=== PATIENT | female | born 1995 | race Caucasian/White ===

== ENCOUNTER 2016-10-29 19:44 | Emergency (ER) | payer OTHER ==
[2016-10-29 20:57] VITALS: BP 125/87
--- NOTE | 2016-11-08 04:53 | ER ---
DATE SEEN: 10/29/2016 TIME SEEN: The patient was seen at 2020 hours. HISTORY OF PRESENT ILLNESS: This 21-year-old , approximately 8-1/2 weeks' gestation by ultrasound 10/26/2016, had onset of cramping at 1800 hours today and small amount of spotting yesterday. She denies fever, chills, or sore throat. She is 2, para 1-0-0-1. Last menstrual period 07/20/2016. The patient is alert, slightly anxious. REVIEW OF SYSTEMS: Otherwise negative. MEDICATIONS: vitamins noted. PHYSICAL EXAMINATION: VITAL SIGNS: Blood pressure 136/84, heart rate 106, respirations 20, oxygen saturation 98%, temperature 37.1 degrees centigrade. GENERAL: Alert women in mild distress. HEENT: PERRLA intact. Pharynx without abnormality. NECK: Supple. No cervical adenopathy, thyromegaly, or masses in neck. LUNGS: Clear to auscultation. ABDOMEN: Soft. No guarding. No abdominal discomfort. Gravid uterus noted, palpable. Palpation of the abdomen, gravid uterus palpable. Upper fundus nontender. PELVIC: Not performed. History is significant for left ganglion cyst removal. Fractured left wrist. With minimal amount of spotting, patient reassured. Quantitative HCG was canceled. ASSESSMENT: 1st trimester bleed. Vaginal bleeding, approximately 9 weeks' gestation. I have reassured the patient. Follow up with doctor in 2 to 4 days or earlier for increased bleeding. To forego intercourse until stabilized and reassured by her doctor that it can be resumed. Bedrest and gradually increase activity as tolerated. /[id number] ANYI/FABBY BOONE
== END 2016-10-29 20:50 | disposition home or self-care (01) ==
LOC: FB.ED 19:44
DX: O20.9 Hemorrhage in early pregnancy, unspecified (principal); Z3A.09 9 weeks gestation of pregnancy
CPT/HCPCS: 81001; 99284

== ENCOUNTER 2017-05-20 06:46 | Inpatient (IN) | payer OTHER ==
[2017-05-20] MEDS ORDERED: Sodium Chloride 0.9% 10 ML Syringe FLUSH PRN (07:45)
[2017-05-20] MEDS ORDERED: Oxytocin/Normal Saline 10 UNIT/1,000 ML BAG IV SCH (07:45)
--- NOTE | 2017-05-20 07:55 | PCM.SN ---
- Free Text/Narrative Note: This is a 22-year-old with EDC of 06/03/17 was 38 weeks. She has pain seemed his hypertension so she'll be induced today. She has a little bit headache last night the Tylenol to care. She'll otherwise asymptomatic and no foggy brain. The nurses report no clonus. Objective- pressure is 150/110 sitting up. Abdomen is gravid- Cervix is posterior and not able to reach today Group B negative- Assessment- induced hypertension, group B negative, 38 weeks Plan-induction and delivery.
[2017-05-20] MEDS: Lactated Ringers 1,000 ML IV SCH ×2 (08:17→15:19)
[2017-05-20] MEDS ORDERED: Acetaminophen 325 MG Tab PO PRN (13:00)
[2017-05-20] MEDS ORDERED: Misoprostol 25 MCG (1/4 of 100 MCG) Tab VAG ONE (16:53)
--- NOTE | 2017-05-20 18:11 | PCM.SN ---
- Free Text/Narrative Note: Patient having contractions. Cervix is about 2 cm dilated and high. Plan is we will stop the Pitocin and I placed Cytotec 25 g in the posterior fornix. No restarted the patient in 4 hours. I let the patient also E right now.
[2017-05-20] MEDS ORDERED: diphenhydrAMINE 25 MG Cap PO ONE (22:19)
[2017-05-20] MEDS ORDERED: Oxytocin 10 Units/1 ML SDV IV SCH (22:30)
[2017-05-21] MEDS: Lactated Ringers 1,000 ML IV SCH ×2 (00:50→05:56)
[2017-05-21] MEDS ORDERED: Scopolamine 1.5 MG Transdermal Patch TOP ONE (01:45)
[2017-05-21] MEDS ORDERED: Scopolamine 1.5 MG Transdermal Patch ONE (01:49)
[2017-05-21] MEDS: Nalbuphine 10 MG/1 ML Vial IVPUSH PRN ×2 (02:31→03:43)
[2017-05-21] MEDS ORDERED: Oxytocin 10 Units/1 ML SDV IM ONE (07:20)
[2017-05-21] MEDS ORDERED: Acetaminophen/Codeine 300-30 MG Tab PO PRN (07:45)
--- NOTE | 2017-05-21 08:39 | PCM.DEL ---
L & D Note - General Info Date of Service: 05/21/17 - Delivery Note Labor: Augmented by Oxytocin Cervical Ripening Method: Misoprostil Delivery Outcome: Livebirth Infant Delivery Method: Spontaneous Vaginal Delivery-Single Presentation: Left Occiput Anterior (LUZ) Nuchal Cord: Reduced (1) Anesthesia Type: Other (see below) (Nubain) Local Anesthetic Volume: 2cc Amniotic Fluid Description: Clear Episiotomy Type: None Laceration: Perineal Suture type: Vicryl (One simple suture) Suture size: 4-0 Placenta: Intact, Spontaneous Cord: 3 Vessels Resuscitation Needed: Yes : Suctioned - General Info Date of Service: 05/21/17 Admission Dx/Problem (Free Text): This is a 22-year-old with -induced hypertension. 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 - Patient Data Vitals - Most Recent: Last Vital Signs Temp 97.8 F 05/21/17 03:46 Pulse 101 H 05/21/17 03:46 Resp 20 05/21/17 03:46 BP 141/93 H 05/21/17 03:46 Pulse Ox Weight - Most Recent: 270 lb I&O - Last 24 Hours: Intake & Output 05/20/17 05/21/17 05/21/17 22:59 06:59 14:59 Intake Total 1697 2839 Output Total 200 1050 Balance 1497 1789 Med Orders - Current: Current Medications Acetaminophen/Codeine Phosphate (Tylenol With Codeine No.3 300mg/30mg) 1 tab PO Q4H PRN PRN Reason: Pain (moderate 4-6) Ibuprofen (Motrin) 800 mg PO Q8H [facility] Multivit/Folic Acid/Iron (-U) 1 each PO DAILY [facility] Discontinued Medications Acetaminophen (Tylenol) 650 mg PO Q4H PRN PRN Reason: Headache Last Admin: 05/20/17 13:53 Dose: 650 mg Diphenhydramine HCl (Benadryl) 25 mg PO ONETIME ONE Stop: 05/20/17 22:20 Last Admin: 05/20/17 22:42 Dose: 25 mg Lactated Ringer's (Ringers, Lactated) 1,000 mls @ 125 mls/hr IV ASDIRECTED [facility] Last Admin: 05/21/17 05:56 Dose: 125 mls/hr Oxytocin/Sodium Chloride (Pitocin In Ns 10 Units/1,000 Ml) 10 unit in 1,000 mls @ 12 mls/hr IV TITRATE [facility]; 2 MUNITS/MIN PRN Reason: Protocol Last Titration: 05/21/17 01:03 Dose: 0 munits/min, 0 mls/hr Misoprostol (Cytotec) 25 mcg VAG ONETIME ONE Stop: 05/20/17 16:54 Last Admin: 05/20/17 17:14 Dose: 25 mcg Nalbuphine HCl (Nubain) 10 mg IVPUSH Q2H PRN PRN Reason: PAIN Last Admin: 05/21/17 03:43 Dose: 10 mg Oxytocin (Pitocin) 10 unit IV TITRATE [facility] Scopolamine (Transderm-Scop) Confirm Administered Dose 1.5 mg .ROUTE .STK-MED ONE Stop: 05/21/17 01:50 Sodium Chloride (Saline Flush) 10 ml FLUSH ASDIRECTED PRN PRN Reason: Keep Vein Open Last Admin: 05/20/17 08:16 Dose: 10 ml - Problem List & Annotations (1) Vaginal delivery SNOMED Code(s): 155617701 Code(s): O80 - ENCOUNTER FOR FULL-TERM UNCOMPLICATED DELIVERY Status: Acute Current Visit: Yes - Problem List Review Problem List Initiated/Reviewed/Updated: Yes - My Orders Last 24 Hours: My Active Orders 05/20/17 07:45 Notify Provider [RC] PRN Notify Provider [RC] STAT Vaginal Exam [RC] PRN 05/21/17 07:45 Patient Status [ADT] Routine May Shower [RC] ASDIRECTED Up ad Karena [RC] ASDIRECTED Vital Signs [RC] PFP Acetaminophen/Codeine [Tylenol with Codeine No.3 300MG/30MG] 1 tab PO Q4H PRN Assess Lochia [WOMSER] Per Unit Routine Assess Uterine Involution [WOMSER] Per Unit Routine Breast Pump [WOMSER] Per Unit Routine Resuscitation Status Routine 05/21/17 07:46 Perineal Care [OM.PC] Per Unit Routine Peripheral IV Discontinue [OM.PC] Routine Sitz Bath [OM.PC] Per Unit Routine 05/21/17 08:00 Ibuprofen [Motrin] 800 mg PO Q8H 05/21/17 09:00 Vit/FA/Fe Fumarate [-U] 1 each PO DAILY 05/21/17 Breakfast Regular Diet [DIET] 05/22/17 05:11 HEMOGLOBIN/HEMATOCRIT,HH [HEME] AM - Plan Plan:: 1. EBL less than 500 and complications none. 2. Normal orders. See orders.
[2017-05-21] MEDS: Prenatal Multivitamin with Calcium/Folic Acid/Fe Fumarate Cap PO SCH (08:59)
[2017-05-21] MEDS: Ibuprofen 800 MG Tab PO SCH ×3 (08:59→23:45)
[2017-05-22] MEDS: Prenatal Multivitamin with Calcium/Folic Acid/Fe Fumarate Cap PO SCH (09:06)
[2017-05-22] MEDS: Ibuprofen 800 MG Tab PO SCH ×2 (09:06→15:44)
--- NOTE | 2017-05-22 09:33 | PCM.PNPP ---
- General Info Date of Service: 05/22/17 Admission Dx/Problem (Free Text): Patient without complaints. Last night she had a large clot Her bleeding slowed significantly. Pain is controlled with ibuprofen. She denies headaches, chest pain or shortness of breath. - General Info Date of Service: 05/22/17 - Patient Data Vital Signs - Most Recent: Last Vital Signs Temp 98.0 F 05/21/17 23:50 Pulse 90 05/21/17 23:50 Resp 18 05/21/17 23:50 BP 125/81 05/21/17 23:50 Pulse Ox 99 05/21/17 23:50 Weight - Most Recent: 270 lb I&O - Last 24 Hours: Intake & Output 05/21/17 05/22/17 05/22/17 22:59 06:59 14:59 Intake Total 1000 Output Total 50 Balance 950 Lab Results - Last 24 Hours: Laboratory Results - last 24 hr 05/22/17 Range/Units 06:30 Hgb 9.1 L (11.5-15.5) g/dL Hct 26.8 L (30.0-51.3) % Med Orders - Current: Current Medications Acetaminophen/Codeine Phosphate (Tylenol With Codeine No.3 300mg/30mg) 1 tab PO Q4H PRN PRN Reason: Pain (moderate 4-6) Ferrous Gluconate (Ferrous Gluconate) 324 mg PO DAILY [facility] Ibuprofen (Motrin) 800 mg PO Q8H [facility] Last Admin: 05/22/17 09:06 Dose: 800 mg Multivit/Folic Acid/Iron (-U) 1 each PO DAILY [facility] Last Admin: 05/22/17 09:06 Dose: 1 each Discontinued Medications Acetaminophen (Tylenol) 650 mg PO Q4H PRN PRN Reason: Headache Last Admin: 05/20/17 13:53 Dose: 650 mg Diphenhydramine HCl (Benadryl) 25 mg PO ONETIME ONE Stop: 05/20/17 22:20 Last Admin: 05/20/17 22:42 Dose: 25 mg Lactated Ringer's (Ringers, Lactated) 1,000 mls @ 125 mls/hr IV ASDIRECTED [facility] Last Admin: 05/21/17 05:56 Dose: 125 mls/hr Oxytocin/Sodium Chloride (Pitocin In Ns 10 Units/1,000 Ml) 10 unit in 1,000 mls @ 12 mls/hr IV TITRATE [facility]; 2 MUNITS/MIN PRN Reason: Protocol Last Titration: 05/21/17 01:03 Dose: 0 munits/min, 0 mls/hr Misoprostol (Cytotec) 25 mcg VAG ONETIME ONE Stop: 05/20/17 16:54 Last Admin: 05/20/17 17:14 Dose: 25 mcg Nalbuphine HCl (Nubain) 10 mg IVPUSH Q2H PRN PRN Reason: PAIN Last Admin: 05/21/17 03:43 Dose: 10 mg Oxytocin (Pitocin) 10 unit IV TITRATE [facility] Oxytocin (Pitocin) 10 unit IM ONETIME ONE Stop: 05/21/17 07:21 Last Admin: 05/21/17 07:23 Dose: 10 unit Scopolamine (Transderm-Scop) Confirm Administered Dose 1.5 mg .ROUTE .STK-MED ONE Stop: 05/21/17 01:50 Last Admin: 05/21/17 21:04 Dose: Not Given Scopolamine (Transderm-Scop) 1.5 mg TOP ONETIME ONE Stop: 05/21/17 01:46 Last Admin: 05/20/17 07:00 Dose: 1.5 mg Sodium Chloride (Saline Flush) 10 ml FLUSH ASDIRECTED PRN PRN Reason: Keep Vein Open Last Admin: 05/20/17 08:16 Dose: 10 ml - Interaction Support Person: Significant Other - Recovery Exam Fundal Tone: Firm Fundal Level: At Umbilicus Fundal Placement: Midline Lochia Amount: Moderate Lochia Color: Rubra/Red Perineum Description: Intact, Minimal Bruising/Swelling Episiotomy/Laceration: None Bladder Status: Voiding - Exam General: Alert, Oriented, Cooperative Lungs: Clear to Auscultation, Normal Respiratory Effort Cardiovascular: Regular Rate, Regular Rhythm, No Murmurs GI/Abdominal Exam: Other (Fundus is firm) Extremities: No Pedal Edema Psy/Mental Status: Alert, Normal Affect, Normal Mood - Problem List & Annotations (1) Vaginal delivery SNOMED Code(s): 789688967 Code(s): O80 - ENCOUNTER FOR FULL-TERM UNCOMPLICATED DELIVERY Status: Acute Current Visit: Yes (2) Anemia SNOMED Code(s): 284005427 Code(s): D64.9 - ANEMIA, UNSPECIFIED Status: Acute Current Visit: Yes Qualifiers: Anemia type: unspecified type Qualified Code(s): D64.9 - Anemia, unspecified - Problem List Review Problem List Initiated/Reviewed/Updated: Yes - My Orders Last 24 Hours: My Active Orders 05/21/17 09:00 Vit/FA/Fe Fumarate [-U] 1 each PO DAILY 05/22/17 09:30 Ferrous Gluconate 324 mg PO DAILY - Plan Plan:: 1. Start iron once a day.
[2017-05-22] MEDS: Ferrous Gluconate 324 MG Tab PO SCH (10:53)
[2017-05-23] MEDS: Ibuprofen 800 MG Tab PO SCH ×2 (00:15→08:42)
[2017-05-23] MEDS: Prenatal Multivitamin with Calcium/Folic Acid/Fe Fumarate Cap PO SCH (08:43)
[2017-05-23] MEDS: Ferrous Gluconate 324 MG Tab PO SCH (08:43)
[2017-05-23 11:08] VITALS: BP 132/78
--- NOTE | 2017-05-23 12:04 | PCM.PN ---
- General Info Date of Service: 05/23/17 Admission Dx/Problem (Free Text): Patient without complaints. Fundus firm vaginal bleeding minimal. - Patient Data Vitals - Most Recent: Last Vital Signs Temp 97.9 F 05/23/17 00:15 Pulse 84 05/23/17 08:05 Resp 18 05/23/17 08:05 BP 132/78 05/23/17 08:05 Pulse Ox 100 05/23/17 08:05 Weight - Most Recent: 270 lb Med Orders - Current: Current Medications Acetaminophen/Codeine Phosphate (Tylenol With Codeine No.3 300mg/30mg) 1 tab PO Q4H PRN PRN Reason: Pain (moderate 4-6) Ferrous Gluconate (Ferrous Gluconate) 324 mg PO DAILY [facility] Last Admin: 05/23/17 08:43 Dose: 324 mg Ibuprofen (Motrin) 800 mg PO Q8H [facility] Last Admin: 05/23/17 08:42 Dose: 800 mg Multivit/Folic Acid/Iron (-U) 1 each PO DAILY [facility] Last Admin: 05/23/17 08:43 Dose: 1 each Discontinued Medications Acetaminophen (Tylenol) 650 mg PO Q4H PRN PRN Reason: Headache Last Admin: 05/20/17 13:53 Dose: 650 mg Diphenhydramine HCl (Benadryl) 25 mg PO ONETIME ONE Stop: 05/20/17 22:20 Last Admin: 05/20/17 22:42 Dose: 25 mg Lactated Ringer's (Ringers, Lactated) 1,000 mls @ 125 mls/hr IV ASDIRECTED [facility] Last Admin: 05/21/17 05:56 Dose: 125 mls/hr Oxytocin/Sodium Chloride (Pitocin In Ns 10 Units/1,000 Ml) 10 unit in 1,000 mls @ 12 mls/hr IV TITRATE [facility]; 2 MUNITS/MIN PRN Reason: Protocol Last Titration: 05/21/17 01:03 Dose: 0 munits/min, 0 mls/hr Misoprostol (Cytotec) 25 mcg VAG ONETIME ONE Stop: 05/20/17 16:54 Last Admin: 05/20/17 17:14 Dose: 25 mcg Nalbuphine HCl (Nubain) 10 mg IVPUSH Q2H PRN PRN Reason: PAIN Last Admin: 05/21/17 03:43 Dose: 10 mg Oxytocin (Pitocin) 10 unit IV TITRATE [facility] Oxytocin (Pitocin) 10 unit IM ONETIME ONE Stop: 05/21/17 07:21 Last Admin: 05/21/17 07:23 Dose: 10 unit Scopolamine (Transderm-Scop) Confirm Administered Dose 1.5 mg .ROUTE .STK-MED ONE Stop: 05/21/17 01:50 Last Admin: 05/21/17 21:04 Dose: Not Given Scopolamine (Transderm-Scop) 1.5 mg TOP ONETIME ONE Stop: 05/21/17 01:46 Last Admin: 05/20/17 07:00 Dose: 1.5 mg Sodium Chloride (Saline Flush) 10 ml FLUSH ASDIRECTED PRN PRN Reason: Keep Vein Open Last Admin: 05/20/17 08:16 Dose: 10 ml - Exam General: Alert, Oriented, Cooperative Lungs: Normal Respiratory Effort GI/Abdominal Exam: Other (Fundus is firm) - Problem List & Annotations (1) Vaginal delivery SNOMED Code(s): 862502082 Code(s): O80 - ENCOUNTER FOR FULL-TERM UNCOMPLICATED DELIVERY Status: Acute Current Visit: Yes (2) Anemia SNOMED Code(s): 646455178 Code(s): D64.9 - ANEMIA, UNSPECIFIED Status: Acute Current Visit: Yes Qualifiers: Anemia type: unspecified type Qualified Code(s): D64.9 - Anemia, unspecified - Problem List Review Problem List Initiated/Reviewed/Updated: Yes - Plan Plan:: 1. Discharge to home on vitamin and iron
--- NOTE | 2017-05-23 12:08 | PCM.DCSUM1 ---
Discharge Summary - Hospital Course Free Text/Narrative:: Hospital course-patient did well and her blood pressure came down nicely. Hemoglobin was below 10 and about 9 day 2 and iron was started. She states she had a large clot after her delivery and after that her bleeding slowed. Her pain was controlled with ibuprofen. She'll be discharged home. Brief History: This is a 22-year-old 38 weeks with a due date of . Was induced because of pain seems hypertension. She is group B negative. Delivered a healthy female weight of 5 lbs. 5 oz. - Discharge Data Discharge Date: 05/23/17 Discharge Disposition: Home, Self-Care 01 Condition: Good - Discharge Diagnosis/Problem(s) (1) Vaginal delivery SNOMED Code(s): 709090204 ICD Code: O80 - ENCOUNTER FOR FULL-TERM UNCOMPLICATED DELIVERY Status: Acute Current Visit: Yes (2) Anemia SNOMED Code(s): 895973169 ICD Code: D64.9 - ANEMIA, UNSPECIFIED Status: Acute Current Visit: Yes Qualifiers: Anemia type: unspecified type Qualified Code(s): D64.9 - Anemia, unspecified (3) induced hypertension SNOMED Code(s): 88953017 ICD Code: O13.9 - GESTATIONAL HTN W/O SIGNIFICANT PROTEINURIA, UNSP TRIMESTER Status: Acute Current Visit: Yes Qualifiers: Trimester: third trimester Qualified Code(s): O13.3 - Gestational [ -induced] hypertension without significant proteinuria, third trimester - Patient Instructions Diet: Regular Diet as Tolerated Activity: As Tolerated Driving: May Drive Today Showering/Bathing: May Shower Notify Provider of: Fever, Increased Pain, Drainage, Nausea and/or Vomiting Other/Special Instructions: 1. Recheck in 6 weeks for check. 2. For pain [id number] ibuprofen. - Discharge Plan Prescriptions/Med Rec: Ferrous Gluconate 324 mg PO DAILY #30 tablet Home Medications: Home Meds Vit No.129/Iron/FA [ One Daily Tablet] 1 each PO DAILY [History] Ferrous Gluconate 324 mg PO DAILY #30 tablet 05/23/17 [Rx] Patient Handouts: Child Safety Seats, Shaken Baby Syndrome, , and Inducing , Infant Formula Feeding, Rashes, Taking Your Child's Temperature, Rooming-In With Your , Keeping Your [place] Safe and Healthy, [id number], Well Charge Operator - [place], Mastitis, [id number], Breast Tenderness, Breast Pumping Tips, Vaginal Delivery, Depression and Baby Blues, How to Take a Sitz Bath, Baby Safe Sleeping Information, How To Prepare Formula, [place] Baby Care, Home Care Instructions for Mom, Vaginal Delivery, Care After, Breast Engorgement, Breast Pumping Tips, [id number], Baby Safe Sleeping Information, [id number] , Challenges and Solutions, Care After Vaginal Delivery , Keeping Your [place] Safe and Healthy, Eating Plan for Women, Bilirubin Test, With Inverted, Flat, or Very Large Nipples, Jaundice, [place], Vhlf-ch-Einu - Discharge Summary/Plan Comment DC Time >30 min.: No - Patient Data Vitals - Most Recent: Last Vital Signs Temp 97.9 F 05/23/17 00:15 Pulse 84 05/23/17 08:05 Resp 18 05/23/17 08:05 BP 132/78 05/23/17 08:05 Pulse Ox 100 05/23/17 08:05 Weight - Most Recent: 270 lb Med Orders - Current: Current Medications Acetaminophen/Codeine Phosphate (Tylenol With Codeine No.3 300mg/30mg) 1 tab PO Q4H PRN PRN Reason: Pain (moderate 4-6) Ferrous Gluconate (Ferrous Gluconate) 324 mg PO DAILY [facility] Last Admin: 05/23/17 08:43 Dose: 324 mg Ibuprofen (Motrin) 800 mg PO Q8H [facility] Last Admin: 05/23/17 08:42 Dose: 800 mg Multivit/Folic Acid/Iron (-U) 1 each PO DAILY [facility] Last Admin: 05/23/17 08:43 Dose: 1 each Discontinued Medications Acetaminophen (Tylenol) 650 mg PO Q4H PRN PRN Reason: Headache Last Admin: 05/20/17 13:53 Dose: 650 mg Diphenhydramine HCl (Benadryl) 25 mg PO ONETIME ONE Stop: 05/20/17 22:20 Last Admin: 05/20/17 22:42 Dose: 25 mg Lactated Ringer's (Ringers, Lactated) 1,000 mls @ 125 mls/hr IV ASDIRECTED [facility] Last Admin: 05/21/17 05:56 Dose: 125 mls/hr Oxytocin/Sodium Chloride (Pitocin In Ns 10 Units/1,000 Ml) 10 unit in 1,000 mls @ 12 mls/hr IV TITRATE [facility]; 2 MUNITS/MIN PRN Reason: Protocol Last Titration: 05/21/17 01:03 Dose: 0 munits/min, 0 mls/hr Misoprostol (Cytotec) 25 mcg VAG ONETIME ONE Stop: 05/20/17 16:54 Last Admin: 05/20/17 17:14 Dose: 25 mcg Nalbuphine HCl (Nubain) 10 mg IVPUSH Q2H PRN PRN Reason: PAIN Last Admin: 05/21/17 03:43 Dose: 10 mg Oxytocin (Pitocin) 10 unit IV TITRATE [facility] Oxytocin (Pitocin) 10 unit IM ONETIME ONE Stop: 05/21/17 07:21 Last Admin: 05/21/17 07:23 Dose: 10 unit Scopolamine (Transderm-Scop) Confirm Administered Dose 1.5 mg .ROUTE .STK-MED ONE Stop: 05/21/17 01:50 Last Admin: 05/21/17 21:04 Dose: Not Given Scopolamine (Transderm-Scop) 1.5 mg TOP ONETIME ONE Stop: 05/21/17 01:46 Last Admin: 05/20/17 07:00 Dose: 1.5 mg Sodium Chloride (Saline Flush) 10 ml FLUSH ASDIRECTED PRN PRN Reason: Keep Vein Open Last Admin: 05/20/17 08:16 Dose: 10 ml *Q Meaningful Use (DIS) - VTE *Q VTE Criteria *Q: - Stroke *Q Stroke Criteria *Q: - AMI *Q AMI Criteria *Q:
== END 2017-05-23 13:26 | disposition home or self-care (01) | DRG 775 ==
LOC: FB.OBCHECK 06:46 → FB.OB 06:49 → UNDOADMOB 07:00 → FB.OBCHECK 07:00 → FB.OB 07:00 → OBSVTOIN 23:50 → INTOOBSV 23:50 → OBSVTOIN 05-21 07:10 → FB.OB 05-21 07:10 → UNDODISIN 05-23 13:26
PROVIDERS: ADMIT Family Medicine; ATTEND Family Medicine
PROC: 3E0P7GC Introduction of Other Therapeutic Substance into Female Reproductive, Via Natural or Artificial Opening (ICD-10-PCS; 2017-05-20)
PROC: 3E033VJ Introduction of Other Hormone into Peripheral Vein, Percutaneous Approach (ICD-10-PCS; 2017-05-20)
PROC: 10E0XZZ Delivery of Products of Conception, External Approach (ICD-10-PCS; principal; 2017-05-21)
PROC: 00HU33Z Insertion of Infusion Device into Spinal Canal, Percutaneous Approach (ICD-10-PCS; 2017-05-21)
DX: O13.4 Gestational [pregnancy-induced] hypertension without significant proteinuria, complicating childbirth (principal); O69.81X0 Labor and delivery complicated by cord around neck, without compression, not applicable or unspecified; O70.0 First degree perineal laceration during delivery; Z3A.38 38 weeks gestation of pregnancy; Z37.0 Single live birth; O90.81 Anemia of the puerperium
CPT/HCPCS: 36415; 59409; 85014; 85018; A9270-GY; J2300; J2590; J7050; J7120

== ENCOUNTER 2017-10-14 19:27 | Emergency (ER) | payer OTHER ==
[2017-10-14] MEDS ORDERED: Ondansetron 8 MG Tab.DIS PO ONE (19:35)
[2017-10-14] MEDS ORDERED: Sodium Chloride 0.9% 1,000 ML IV ONE (20:57)
[2017-10-14] MEDS ORDERED: Acetaminophen 325 MG Tab PO ONE (21:00)
--- NOTE | 2017-10-14 23:00 | EDM.PDOC ---
ED HPI GENERAL MEDICAL PROBLEM - General Chief Complaint: Gastrointestinal Problem Stated Complaint: SICK Time Seen by Provider: 10/14/17 19:27 Source of Information: Reports: Patient, Family History Limitations: Reports: No Limitations - History of Present Illness INITIAL COMMENTS - FREE TEXT/NARRATIVE: 22 y.o.w.f came with her family to the ed due to N/V for 1 day and epigastric pain. Pt is breast feeding a 5 months old baby. 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 No trauma. Pt had poor po intake in the past few days, could be . No other acute medical issues. BP 104/68 Pulse 112 RR 18 Pulse ox 100% Temp 36.7 Onset Date: 10/13/17 Onset Time: 09:00 Duration: Hour(s): Location: Reports: Abdomen Quality: Reports: Ache, Burning, Dull, Pressure, Same as Previous Episode Severity: Moderate Improves with: Reports: Rest Worsens with: Reports: Movement Context: Reports: Sick Contact Associated Symptoms: Reports: No Other Symptoms upper abdomen Pain Score (Numeric/FACES): 2 - Related Data Allergies Allergy/AdvReac Type Severity Reaction Status Date / Time No Known Allergies Allergy Verified 10/14/17 21:00 Home Meds: Home Meds Ondansetron [Zofran ODT] 4 mg PO Q6H PRN #20 tab.dis 10/14/17 [Rx] Pantoprazole Sodium [Protonix] 20 mg PO DAILY #20 tablet.dr 10/14/17 [Rx] Past Medical History HEENT History: Reports: Other (See Below) Other HEENT History: NASAL CONGESTION Gastrointestinal History: Reports: Other (See Below) Other Gastrointestinal History: gullbladder issues 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: Musculoskeletal History: Reports: Other (See Below) Other Musculoskeletal History: wrist surgery Neurological History: Reports: Migraines Psychiatric History: Reports: Depression Hematologic History: Reports: Other (See Below) Other Hematologic History: HGB SL LOW AT LAST VISIT - Past Surgical History HEENT Surgical History: Reports: Oral Surgery GI Surgical History: Reports: None Neurological Surgical History: Reports: None Musculoskeletal Surgical History: Reports: Ganglion Cyst Social & Family History - Family History Family Medical History: Noncontributory - Tobacco Use Smoking Status *Q: Never Smoker Second Hand Smoke Exposure: Yes - Caffeine Use Caffeine Use: Reports: None Other Caffeine Use: RARE SODA - Recreational Drug Use Recreational Drug Use: No - Living Situation & Occupation Living situation: Reports: Single ED ROS GENERAL - Review of Systems Review Of Systems: See Below Constitutional: Reports: No Symptoms HEENT: Reports: No Symptoms Respiratory: Reports: No Symptoms Cardiovascular: Reports: No Symptoms Endocrine: Reports: No Symptoms GI/Abdominal: Reports: Abdominal Pain (epigastric) : Reports: No Symptoms Musculoskeletal: Reports: No Symptoms Skin: Reports: No Symptoms Neurological: Reports: No Symptoms Psychiatric: Reports: No Symptoms Hematologic/Lymphatic: Reports: No Symptoms Immunologic: Reports: No Symptoms ED EXAM, GI/ABD - Physical Exam Exam: See Below Exam Limited By: No Limitations General Appearance: Alert, WD/WN, No Apparent Distress Eyes: Bilateral: Normal Appearance Ears: Normal External Exam, Normal Canal Nose: Normal Inspection, Normal Mucosa Throat/Mouth: Normal Inspection, Normal Lips Head: Atraumatic, Normocephalic Neck: Normal Inspection, Supple, Non-Tender Respiratory/Chest: No Respiratory Distress, Lungs Clear, Normal Breath Sounds, Chest Non-Tender Cardiovascular: Normal Peripheral Pulses, Regular Rate, Rhythm GI/Abdominal Exam: Normal Bowel Sounds, Soft, Tender (epigastric tenderness) (Female) Exam: Deferred Rectal (Female) Exam: Deferred Back Exam: Normal Inspection, Full Range of Motion Extremities: Normal Inspection, Normal Range of Motion, Non-Tender, No Pedal Edema, Normal Capillary Refill Neurological: Alert, Oriented, CN II-XII Intact, Normal Cognition, Normal Gait Psychiatric: Normal Affect, Normal Mood Skin Exam: Warm, Dry, Intact, Normal Color, No Rash Lymphatic: No Adenopathy Course - Vital Signs Text/Narrative:: 22 y.o.w.f came with her family to the ed due to N/V for 1 day and epigastric pain. Pt is breast feeding a 5 months old baby. 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 No trauma. Pt had poor po intake in the past few days, could be . No other acute medical issues. BP 104/68 Pulse 112 RR 18 Pulse ox 100% Temp 36.7 PE: Pale 22 r.o.w.f with nausea and epigastric pain Labs: WBC 21K BUN/Cr 23.4 UA neg bands: 2 Imaging: CXR: NAD Impression: Leukocytosis ( pos from vomiting) gastritis, dehydration Tx: NS, Zofran, Protronix Reexam: Improved, pt was able to keep food down on D/C Plan: D/C with instriction Last Recorded V/S: Last Vital Signs Temp 37.1 C 10/14/17 22:10 Pulse 96 10/14/17 22:10 Resp 18 10/14/17 22:10 BP 113/59 L 10/14/17 22:10 Pulse Ox 98 10/14/17 22:10 - Orders/Labs/Meds Orders: Active Orders 24 hr Category Date Time Status CULTURE BLOOD [BC] Urgent Lab 10/14/17 21:00 Received CULTURE BLOOD [BC] Urgent Lab 10/14/17 21:05 Received Blood Culture x2 Reflex Set [OM.PC] Urgent Oth 10/14/17 20:54 Ordered Labs: Laboratory Tests 10/14/17 10/14/17 10/14/17 Range/Units 19:45 19:45 19:45 WBC 21.4 H (4.5-12.0) X10-3/uL RBC 5.29 H (3.23-5.20) x10(6)uL Hgb 12.1 D (11.5-15.5) g/dL Hct 36.9 D (30.0-51.3) % MCV 69.6 L (80-96) fL MCH 22.8 L (27.7-33.6) pg MCHC 32.8 (32.2-35.4) g/dL RDW 18.0 H (11.5-15.5) % Plt Count 316 (125-369) X10(3)uL MPV 8.7 (7.4-10.4) fL Add Manual Diff Yes Neutrophils % (Manual) 87 H (46-82) % Band Neutrophils % 2 (0-6) % Lymphocytes % (Manual) 8 L (13-37) % Monocytes % (Manual) 3 L (4-12) % Hypochromasia Few Anisocytosis Few Microcytosis Moderate H Sodium 140 (135-145) mmol/L Potassium 3.9 (3.5-5.3) mmol/L Chloride 103 (100-110) mmol/L Carbon Dioxide 29 (21-32) mmol/L BUN 16 (7-18) mg/dL Creatinine 0.7 (0.55-1.02) mg/dL Est Cr Clr Drug Dosing TNP Estimated GFR (MDRD) > 60 (>60) BUN/Creatinine Ratio 22.9 H (9-20) Glucose 97 (80-116) mg/dL Lactic Acid (0.4-2.2) mmol/L Calcium 9.2 (8.6-10.2) mg/dL Total Bilirubin 0.2 (0.1-1.3) mg/dL Direct Bilirubin 0.05 L (0.10-0.20) mg/dL AST 17 (5-25) IU/L ALT 24 (12-36) U/L Alkaline Phosphatase 129 H (56-112) IU/L Total Protein 7.9 (6.0-8.0) g/dL Albumin 3.5 (3.5-5.2) g/dL Amylase 41 (25-115) U/L Urine Color (YELLOW) Urine Appearance (CLEAR) Urine pH (5.0-6.5) Ur Specific Sarver (1.010-1.025) Urine Protein (NEGATIVE) mg/dL Urine Glucose (UA) (NEGATIVE) mg/dL Urine Ketones (NEGATIVE) mg/dL Urine Occult Blood (NEGATIVE) Urine Nitrite (NEGATIVE) Urine Bilirubin (NEGATIVE) Urine Urobilinogen (NEGATIVE) mg/dL Ur Leukocyte Esterase (NEGATIVE) Urine RBC (0) Urine WBC (0) Ur Squamous Epith Cells (NS,R,O) Urine Bacteria (NS) Urine Mucus (NS) Urine HCG, Qual (NEGATIVE) 10/14/17 10/14/17 10/14/17 Range/Units 20:00 20:00 21:05 WBC (4.5-12.0) X10-3/uL RBC (3.23-5.20) x10(6)uL Hgb (11.5-15.5) g/dL Hct (30.0-51.3) % MCV (80-96) fL MCH (27.7-33.6) pg MCHC (32.2-35.4) g/dL RDW (11.5-15.5) % Plt Count (125-369) X10(3)uL MPV (7.4-10.4) fL Add Manual Diff Neutrophils % (Manual) (46-82) % Band Neutrophils % (0-6) % Lymphocytes % (Manual) (13-37) % Monocytes % (Manual) (4-12) % Hypochromasia Anisocytosis Microcytosis Sodium (135-145) mmol/L Potassium (3.5-5.3) mmol/L Chloride (100-110) mmol/L Carbon Dioxide (21-32) mmol/L BUN (7-18) mg/dL Creatinine (0.55-1.02) mg/dL Est Cr Clr Drug Dosing Estimated GFR (MDRD) (>60) BUN/Creatinine Ratio (9-20) Glucose (80-116) mg/dL Lactic Acid 0.6 (0.4-2.2) mmol/L Calcium (8.6-10.2) mg/dL Total Bilirubin (0.1-1.3) mg/dL Direct Bilirubin (0.10-0.20) mg/dL AST (5-25) IU/L ALT (12-36) U/L Alkaline Phosphatase (56-112) IU/L Total Protein (6.0-8.0) g/dL Albumin (3.5-5.2) g/dL Amylase (25-115) U/L Urine Color Yellow (YELLOW) Urine Appearance Clear (CLEAR) Urine pH 9.0 H (5.0-6.5) Ur Specific Sarver 1.015 (1.010-1.025) Urine Protein Negative (NEGATIVE) mg/dL Urine Glucose (UA) Normal (NEGATIVE) mg/dL Urine Ketones Negative (NEGATIVE) mg/dL Urine Occult Blood Negative (NEGATIVE) Urine Nitrite Negative (NEGATIVE) Urine Bilirubin Negative (NEGATIVE) Urine Urobilinogen Normal (NEGATIVE) mg/dL Ur Leukocyte Esterase Negative (NEGATIVE) Urine RBC 0-5 (0) Urine WBC 0-5 (0) Ur Squamous Epith Cells Few H (NS,R,O) Urine Bacteria Few H (NS) Urine Mucus Few H (NS) Urine HCG, Qual Negative (NEGATIVE) Meds: Medications Discontinued Medications Generic Name Dose Route Start Last Admin Trade Name Freq PRN Reason Stop Dose Admin Acetaminophen 650 mg 10/14/17 21:00 10/14/17 22:25 Tylenol PO 10/14/17 21:01 650 mg NOW ONE Administration Sodium Chloride 1,000 mls @ 999 mls/hr 10/14/17 20:57 10/14/17 21:10 Normal Saline IV 10/14/17 21:57 999 mls/hr .BOLUS ONE Administration Ondansetron HCl 8 mg 10/14/17 19:35 10/14/17 20:08 Zofran Odt PO 10/14/17 19:36 8 mg ONETIME ONE Administration Departure - Departure Time of Disposition: 22:55 Disposition: Home, Self-Care 01 Condition: Good Clinical Impression: Gastritis Qualifiers: Gastritis type: unspecified gastritis Chronicity: acute Gastritis bleeding: without bleeding Qualified Code(s): K29.00 - Acute gastritis without bleeding - Discharge Information Prescriptions: Ondansetron [Zofran ODT] 4 mg PO Q6H PRN #20 tab.dis PRN Reason: Nausea Pantoprazole Sodium [Protonix] 20 mg PO DAILY #20 tablet.dr Instructions: Abdominal Pain, Adult Referrals: Isiah Reece MD [Primary Care Provider] - Forms: ED Department Discharge Additional Instructions: Please take the meds as recommended, please increase water intake, please f/u in 3 days to recheck the WBC. Please come back if your symptoms get worse acutely. - My Orders Last 24 Hours: My Active Orders 10/14/17 20:54 Blood Culture x2 Reflex Set [OM.PC] Urgent 10/14/17 21:00 CULTURE BLOOD [BC] Urgent 10/14/17 21:05 CULTURE BLOOD [BC] Urgent - Assessment/Plan Last 24 Hours: My Active Orders 10/14/17 20:54 Blood Culture x2 Reflex Set [OM.PC] Urgent 10/14/17 21:00 CULTURE BLOOD [BC] Urgent 10/14/17 21:05 CULTURE BLOOD [BC] Urgent
[2017-10-14 23:17] VITALS: BP 113/59
--- NOTE | 2017-10-15 09:42 | CR ---
INDICATION: Elevated white blood count. CHEST: PA and lateral views of the chest were obtained 10/14/2017. No comparisons were available. The heart, mediastinum, and bony thorax were unremarkable. Evidence of exogenous obesity is noted. An active infiltrate or effusion was not identified. IMPRESSION: 1. No acute process. 2. Exogenous obesity. MTDD
== END 2017-10-14 23:10 | disposition home or self-care (01) ==
LOC: FB.ED 19:27
DX: K29.00 Acute gastritis without bleeding (principal); E86.0 Dehydration; Z79.899 Other long term (current) drug therapy; D72.829 Elevated white blood cell count, unspecified
CPT/HCPCS: 36415; 71046; 80048; 80076; 81001; 81025; 82150; 83605; 85025; 87040; 96360; 99284; A9270; J7040

== ENCOUNTER 2018-04-13 05:54 | Emergency (ER) | payer OTHER ==
[2018-04-13 06:18] VITALS: BP 131/80
--- NOTE | 2018-04-13 06:36 | EDM.PDOC ---
ED HPI GENERAL MEDICAL PROBLEM - General Chief Complaint: ENT Problem Stated Complaint: TOOTH ABCESS Time Seen by Provider: 04/13/18 06:20 Source of Information: Reports: Patient History Limitations: Reports: No Limitations - History of Present Illness INITIAL COMMENTS - FREE TEXT/NARRATIVE: Gwen comes into [facility] ED with dental pain involving teeth of the R upper maxillae , sxs over the past week that appear to be escalating. She has had similar sxs in the past and was managed with antibx. She has not sought dental surgery. 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: Musculoskeletal History: Reports: Other (See Below) Other Musculoskeletal History: wrist surgery Neurological History: Reports: Migraines Psychiatric History: Reports: Depression Hematologic History: Reports: Other (See Below) Other Hematologic History: HGB SL LOW AT LAST VISIT - Past Surgical History HEENT Surgical History: Reports: Oral Surgery GI Surgical History: Reports: None Neurological Surgical History: Reports: None Musculoskeletal Surgical History: Reports: Ganglion Cyst Social & Family History - Family History Family Medical History: Noncontributory - Tobacco Use Smoking Status *Q: Never Smoker - Caffeine Use Caffeine Use: Reports: None Other Caffeine Use: RARE SODA - Recreational Drug Use Recreational Drug Use: No - Living Situation & Occupation Living situation: Reports: Single ED ROS ENT - Review of Systems Review Of Systems: ROS reveals no pertinent complaints other than HPI. ED EXAM, ENT - Physical Exam Exam: See Below Exam Limited By: No Limitations General Appearance: Alert, WD/WN, Mild Distress, Obese Eye Exam: Bilateral Eye: EOMI, Normal Inspection, PERRL Ears: Normal External Exam Nose: Normal Inspection Mouth/Throat: Normal Gums, Normal Lips, Normal Oropharynx, Dental Tenderness (#2 , #3), Gum Swelling (#2) Head: Atraumatic, Normocephalic Neck: Normal Inspection, Supple, Non-Tender, Full Range of Motion Respiratory/Chest: Lungs Clear Cardiovascular: Regular Rate, Rhythm Back: Normal Inspection Extremities: Normal Inspection Neurological: Alert, Oriented, CN II-XII Intact, Normal Cognition, No Motor/ Sensory Deficits Psychiatric: Normal Affect, Normal Mood Skin: Warm, Dry, Intact, Normal Color Lymphatic: No Adenopathy Course - Vital Signs Text/Narrative:: Gwen remained stable at the [facility] ED. No meds were administered. Last Recorded V/S: Last Vital Signs Temp 36.6 C 04/13/18 06:11 Pulse 78 04/13/18 06:11 Resp 18 04/13/18 06:11 BP 131/80 04/13/18 06:11 Pulse Ox 99 04/13/18 06:11 Departure - Departure Time of Disposition: 06:35 Disposition: Home, Self-Care 01 Condition: Fair Clinical Impression: Infected dental carries - Discharge Information *PRESCRIPTION DRUG MONITORING PROGRAM REVIEWED*: Not Applicable *COPY OF PRESCRIPTION DRUG MONITORING REPORT IN PATIENT WILSON: Not Applicable Prescriptions: Clindamycin HCl 300 mg PO TID #20 capsule Referrals: Isiah Reece MD [Primary Care Provider] - - Problem List & Annotations (1) Infected dental carries SNOMED Code(s): 32874722 Code(s): K02.9 - DENTAL CARIES, UNSPECIFIED; K04.7 - PERIAPICAL ABSCESS WITHOUT SINUS Status: Acute Current Visit: Yes Annotation/Comment:: I dispensed Clindamycin 300 mg cap tid for a week, analgesic of choice, and see a DDS regarding managemnt. - Problem List Review Problem List Initiated/Reviewed/Updated: Yes - Assessment/Plan Plan: Follow up with DDS.
== END 2018-04-13 06:40 | disposition home or self-care (01) ==
LOC: FB.ED 05:54
DX: K02.9 Dental caries, unspecified (principal); K04.7 Periapical abscess without sinus
CPT/HCPCS: 99282

== ENCOUNTER 2019-05-12 08:18 | Day surgery (SDC) | payer BC, OTHER ==
[2019-05-12] MEDS ORDERED: Succinylcholine 200 MG/10 ML MDV IV ONE (08:19)
[2019-05-12] MEDS ORDERED: Ketorolac 30 MG/ML SDV IVPUSH ONE (08:19)
[2019-05-12] MEDS ORDERED: fentaNYL 100 MCG/2 ML SDV IV ONE (08:19)
[2019-05-12] MEDS ORDERED: Lidocaine 2% 100 MG/5 ML Syringe IVPUSH ONE (08:19)
[2019-05-12] MEDS ORDERED: Lactated Ringers 1,000 ML IV ONE (08:19)
[2019-05-12] MEDS ORDERED: Dexamethasone 4 MG/ML 5 ML MDV IVPUSH ONE (08:19)
[2019-05-12] MEDS ORDERED: Rocuronium 100 MG/10 ML MDV IV ONE (08:19)
[2019-05-12] MEDS ORDERED: Propofol 200 MG/20 ML SDV IV ONE (08:19)
[2019-05-12] MEDS ORDERED: HYDROmorphone 2 MG/ML SDV IV ONE (08:19)
[2019-05-12] MEDS ORDERED: Glycopyrrolate 0.2 MG/ML 5 ML MDV IV ONE (08:19)
[2019-05-12] MEDS ORDERED: Midazolam 1 MG/ML 2 ML SDV IV ONE (08:19)
[2019-05-12] MEDS ORDERED: Ondansetron 4 MG/2 ML SDV IVPUSH ONE (08:19)
[2019-05-12] MEDS ORDERED: Neostigmine Methylsulfate 10 MG/10 ML MDV IVPUSH ONE (08:19)
[2019-05-12] MEDS ORDERED: Sodium Chloride 0.9% 10 ML Syringe FLUSH PRN (08:30)
[2019-05-12] MEDS ORDERED: Lactated Ringers 1,000 ML IV SCH (08:30)
--- NOTE | 2019-05-12 09:09 | PCM.HP.2 ---
H&P History of Present Illness - General Date of Service: 05/12/19 Admit Problem/Dx: Admission Diagnosis/Problem Admission Diagnosis/Problem Laparoscopic cholecystectomy Source of Information: Patient - History of Present Illness Initial Comments - Free Text/Narative: Pt with known hx fo sx gallstones. First seen several yrs ago when she was in her 3rd trimester of . Pain apparently went away. Last week returned. Located in the ruq. No obstructive sx. labs essentially nl, US demonstrated gallstones and a nl cbd. Pain has been intermittent of varying intensity. - Related Data Allergies/Adverse Reactions: Allergies Allergy/AdvReac Type Severity Reaction Status Date / Time No Known Allergies Allergy Verified 05/11/19 15:03 Home Medications: Home Meds Acetaminophen [Tylenol] 325 mg PO Q4H PRN 05/11/19 [History] Ethinyl Estradiol/Drospirenone [Drospirenone-Ee 3-0.02 mg Tab] 1 each PO DAILY 05/11/19 [History] SUMAtriptan [Imitrex] 50 mg PO DAILY PRN 05/11/19 [History] Past Medical History HEENT History: Reports: Other (See Below) Other HEENT History: NASAL CONGESTION,AMBLYOPIA, HYPERMETROPIA Gastrointestinal History: Reports: Other (See Below) Other Gastrointestinal History: gullbladder issues 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: Polycystic 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, Musculoskeletal History: Reports: Other (See Below) Other Musculoskeletal History: wrist surgery, BACK SPASM Neurological History: Reports: Migraines Psychiatric History: Reports: Depression Endocrine/Metabolic History: Reports: Obesity/BMI 30+ Hematologic History: Reports: Other (See Below) Other Hematologic History: HGB SL LOW AT LAST VISIT - Past Surgical History HEENT Surgical History: Reports: Oral Surgery GI Surgical History: Reports: None Neurological Surgical History: Reports: None Musculoskeletal Surgical History: Reports: Ganglion Cyst Other Musculoskeletal Surgeries/Procedures:: ganglion cyst removed L wrist Social & Family History - Family History Family Medical History: Noncontributory - Caffeine Use Caffeine Use: Reports: None Other Caffeine Use: RARE SODA - Living Situation & Occupation Living situation: Reports: Single H&P Review of Systems - Review of Systems: Review Of Systems: See Below General: Reports: Fever (one episode low grade ) HEENT: Reports: No Symptoms Pulmonary: Reports: No Symptoms Cardiovascular: Reports: No Symptoms Gastrointestinal: Reports: Abdominal Pain, Nausea, Vomiting Genitourinary: Reports: No Symptoms Musculoskeletal: Reports: No Symptoms Skin: Reports: No Symptoms Neurological: Reports: No Symptoms Exam - Exam Exam: See Below - Vital Signs Vital Signs: Last Vital Signs Temp 97.7 F 05/12/19 08:59 Pulse 113 H 05/12/19 08:59 Resp 20 05/12/19 08:59 BP 113/73 05/12/19 08:59 Pulse Ox 97 05/12/19 08:59 Weight: 131.088 kg - Exam General: Alert, Oriented, Cooperative HEENT: Conjunctiva Clear, Hearing Intact, Glasses Neck: Supple Lungs: Clear to Auscultation, Normal Respiratory Effort Cardiovascular: Regular Rate, Regular Rhythm GI/Abdominal Exam: Normal Bowel Sounds, Soft, Non-Tender Back Exam: Normal Inspection Skin: Warm, Dry, Intact - Patient Data Lab Results Last 24 hrs: Laboratory Results - last 24 hr 05/12/19 Range/Units 08:45 Urine HCG, Qual Negative (NEGATIVE) *Q Meaningful Use (ADM) - VTE *Q VTE Pharmacological Contraindications *Q: Patient Scheduled Surgery - Problem List (1) Cholelithiasis SNOMED Code(s): 667792560 ICD Code: K80.20 - CALCULUS OF GALLBLADDER W/O CHOLECYSTITIS W/O OBSTRUCTION Status: Acute Current Visit: Yes Qualifiers: Cholelithiasis location: gallbladder Cholecystitis presence: without cholecystitis Biliary obstruction: without biliary obstruction Qualified Code(s): K80.20 - Calculus of gallbladder without cholecystitis without obstruction Problem List Initiated/Reviewed/Updated: Yes Orders Last 24hrs: Active Orders 24 hr Category Date Time Status Patient Status [ADT] Routine ADT 05/12/19 08:30 Ordered Patient to Empty Bladder [RC] ASDIRECTED Care 05/12/19 08:30 Active RT Incentive Spirometry [RC] ASDIRECTED Care 05/12/19 08:30 Active Verify Patient Consent Obtain [RC] ASDIRECTED Care 05/12/19 08:30 Active Nothing Per Oral Diet [DIET] Diet 05/11/19 Dinner Ordered Lactated Ringers [Ringers, Lactated] 1,000 ml Med 05/12/19 08:30 Active IV ASDIRECTED Sodium Chloride 0.9% [Saline Flush] Med 05/12/19 08:30 Active 10 ml FLUSH ASDIRECTED PRN cefOXitin [Mefoxin] 3 gm Med 05/12/19 09:00 Active Sodium Chloride 0.9% [Normal Saline] 100 ml IV ONETIME Peripheral IV Insertion Adult [OM.PC] Routine Oth 05/12/19 08:30 Ordered Sequential Compression Device [OM.PC] Routine Oth 05/12/19 08:30 Ordered Resuscitation Status Routine Resus Stat 05/11/19 15:24 Ordered Medication Orders Cefoxitin Sodium 3 gm/ Sodium (Chloride) 100 mls @ 200 mls/hr IV ONETIME ONE Stop: 05/12/19 09:29 Lactated Ringer's (Ringers, Lactated) 1,000 mls @ 125 mls/hr IV ASDIRECTED MARINA Sodium Chloride (Saline Flush) 10 ml FLUSH ASDIRECTED PRN PRN Reason: Keep Vein Open Assessment/Plan Comment:: Plan Lap cholecystectomy. procedure and risks were explained to the pt to include bleeding, infection, injury to the common bile duct, liver, intestine and blood vessels. Need to convert to open was also discussed. Expressed understanding and asks us to proceed.
[2019-05-12] MEDS ORDERED: Bupivacaine 0.5% 30 ML SDV INJECT ONE (11:00)
[2019-05-12] MEDS ORDERED: Lidocaine 1% with EPINEPHrine 1:100,000 20 ML MDV INJECT ONE (11:00)
[2019-05-12] MEDS ORDERED: Acetaminophen/HYDROcodone 325-5 MG Tab PO PRN (11:26)
--- NOTE | 2019-05-12 11:31 | PCM.OPNOTE ---
- General Post-Op/Procedure Note Date of Surgery/Procedure: 05/12/19 Operative Procedure(s): lap cholecystectomy Findings: critical view obtained Pre Op Diagnosis: gallstones without acutecholecystitis or obstruction Post-Op Diagnosis: Same Anesthesia Technique: General ET Tube, Local (7 ml 1 % lido with epi/0.5% buvipicaine) Primary Surgeon: Tyree Crowder Anesthesia Provider: Isiah Leslie Pathology: gallbladder and contents Complications: None Condition: Good Free Text/Narrative:: see dictation
[2019-05-12 14:49] VITALS: BP 99/61; PULSE 75
--- NOTE | 2019-05-12 18:22 | OR ---
DATE OF OPERATION: 05/12/2019 SURGEON: Tyree Crowder MD PROCEDURE PERFORMED: Laparoscopic cholecystectomy. PREOPERATIVE DIAGNOSIS: Symptomatic cholelithiasis without obstruction or inflammation. POSTOPERATIVE DIAGNOSIS: Symptomatic cholelithiasis without obstruction or inflammation. INDICATIONS FOR PROCEDURE: This is a 24-year-old white female with a known history of cholelithiasis, was initially seen approximately 2 years ago during her third trimester of , and she had some symptoms at that time. After delivery of her child, her symptoms essentially resolved, and she has done well until the past week, where she began to experience symptoms consistent with biliary colic. She was offered and accepted a laparoscopic cholecystectomy. INTRAOPERATIVE FINDINGS: 7 mL of our local mixture was used for our trocar site insertion, and the critical view was obtained. DESCRIPTION OF OPERATION: After an excellent IV sedation was administered, the patient was prepped and draped in the usual sterile manner. Attention was first turned to the patient's umbilicus, where local was injected in the midline below the umbilicus. A small vertical midline incision was then made. Blunt dissection was carried out exposing the midline fascia. Two stay sutures of 0 Vicryl were placed on either side of the fascia, which was elevated. Then, the fascia was incised, and the abdominal cavity was entered. After palpation to ensure no adhesions, a 10.5 mm Gary trocar was inserted. The patient's abdomen was insufflated to 15 mmHg using carbon dioxide. The patient was placed in reverse Trendelenburg position and three 5 mm ports were placed; one in the midline epigastrium and two below the right costal margin, the proximal level of the midclavicular and anterior axillary line. This was done by infiltrating with local, full thickness, through the abdominal wall, making stab incisions in the skin and inserting the trocars. The gallbladder was easily retracted in a cephalad fashion. The infundibulum was grasped. Blunt dissection was carried out exposing the cystic duct and cystic artery. After obtaining a critical view, 2 clips were placed proximally on both of these structures and one distally. The structures were then transected. L-hook cautery dissection was then used to dissect the gallbladder free from the gallbladder fossa. The specimen was delivered into a specimen bag and delivered out through the umbilicus. The area was irrigated and after assuring hemostasis, the trocars were removed under direct visualization, again, to ensure no bleeding. The pneumoperitoneum was released. The periumbilical fascial defect was closed with 2 interrupted 0 Vicryl sutures. Abdirahman were used to close the skin. Needle, sponge, and instrument counts were reported as correct. The patient was taken to recovery room in good condition. /[id number] /MODL
== END 2019-05-12 14:55 | disposition home or self-care (01) ==
LOC: FB.SDS 08:18
PROVIDERS: ATTEND Surgery
DX: K80.10 Calculus of gallbladder with chronic cholecystitis without obstruction (principal); E28.2 Polycystic ovarian syndrome; F41.9 Anxiety disorder, unspecified; F32.9 Major depressive disorder, single episode, unspecified; G43.909 Migraine, unspecified, not intractable, without status migrainosus; Z79.899 Other long term (current) drug therapy
CPT/HCPCS: 47562; 81025; 88304; A9270; J0330; J0694; J1100; J1170; J1885; J2001; J2250; J2405; J2704; J2710; J3010; J3490; J7030; J7120

== ENCOUNTER 2020-05-13 22:17 | Emergency (ER) | payer BC ==
[2020-05-13 22:26] VITALS: BP 141/98; PULSE 63
[2020-05-13] MEDS ORDERED: Ketorolac 60 MG/2 ML SDV IM ONE (22:35)
--- NOTE | 2020-05-13 22:38 | EDM.PDOC ---
ED HPI GENERAL MEDICAL PROBLEM - General Chief Complaint: ENT Problem Stated Complaint: GUM INFECTION Time Seen by Provider: 05/13/20 22:33 Source of Information: Reports: Patient History Limitations: Reports: No Limitations - History of Present Illness INITIAL COMMENTS - FREE TEXT/NARRATIVE: Gwen returns to [facility] ED with a painful tooth involving the R lower mandible, sxs over the past week. She was seen in yesterday, and dispensed PCN for presumed dental infection. Pain has not improved in the interim inspite of NSAIDs and Tylenol. 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 Gastrointestinal History: Reports: Other (See Below) Other Gastrointestinal History: gullbladder issues Genitourinary History: Reports: UTI, Recurrent [employer] History: Reports: Polycystic Ovaries, Musculoskeletal History: Reports: Other (See Below) Other Musculoskeletal History: wrist surgery, BACK SPASM Neurological History: Reports: Migraines Psychiatric History: Reports: Depression Endocrine/Metabolic History: Reports: Obesity/BMI 30+ Hematologic History: Reports: Other (See Below) Other Hematologic History: HGB SL LOW AT LAST VISIT - Past Surgical History HEENT Surgical History: Reports: Oral Surgery GI Surgical History: Reports: None Neurological Surgical History: Reports: None Musculoskeletal Surgical History: Reports: Ganglion Cyst Other Musculoskeletal Surgeries/Procedures:: ganglion cyst removed L wrist Social & Family History - Family History Family Medical History: Noncontributory - Caffeine Use Caffeine Use: Reports: None Other Caffeine Use: RARE SODA - Living Situation & Occupation Living situation: Reports: Single ED ROS ENT - Review of Systems Review Of Systems: Comprehensive ROS is negative, except as noted in HPI. ED EXAM, ENT - Physical Exam Exam: See Below Exam Limited By: No Limitations General Appearance: Alert, WD/WN, Mild Distress, Obese Eye Exam: Bilateral Eye: EOMI, Normal Inspection, PERRL Ears: Normal External Exam Nose: Normal Inspection Mouth/Throat: Normal Gums, Normal Lips, Normal Oropharynx, Dental Pain (#31), Dental Tenderness Head: Atraumatic, Normocephalic Neck: Normal Inspection, Supple, Non-Tender Respiratory/Chest: Lungs Clear Cardiovascular: Regular Rate, Rhythm Back: Normal Inspection Extremities: Normal Inspection Neurological: Alert, Oriented, CN II-XII Intact, Normal Cognition, Normal Gait, No Motor/Sensory Deficits Psychiatric: Normal Affect, Normal Mood Skin: Warm, Dry, Intact, Normal Color, No Rash Lymphatic: No Adenopathy Course - Vital Signs Text/Narrative:: Dental pain #31, possible dental caries, fx or abscess. The mandible and gingiva are not erythematous or swollen. I administered Toradol 60 mg IM, and suggested a DDS appt with x rays to determine definitive diagnosis. Patient expressed understanding and will follow thru. Last Recorded V/S: Last Vital Signs Temp 36.6 C 05/13/20 22:25 Pulse 63 05/13/20 22:25 Resp 18 05/13/20 22:25 BP 141/98 H 05/13/20 22:25 Pulse Ox 100 05/13/20 22:25 - Orders/Labs/Meds Meds: Medications Discontinued Medications Generic Name Dose Route Start Last Admin Trade Name Freq PRN Reason Stop Dose Admin Ketorolac Tromethamine 60 mg 05/13/20 22:35 05/13/20 22:49 Toradol IM 05/13/20 22:36 60 mg ONETIME ONE Administration Departure - Departure Time of Disposition: 22:58 Disposition: Home, Self-Care 01 Condition: Fair Clinical Impression: Dental caries, unspecified - Discharge Information *PRESCRIPTION DRUG MONITORING PROGRAM REVIEWED*: Not Applicable *COPY OF PRESCRIPTION DRUG MONITORING REPORT IN PATIENT [facility]IL[facility]: Not Applicable Instructions: Ketorolac injection, Dental Abscess Referrals: Isiah Reece MD [Primary Care Provider] - Forms: ED Department Discharge Additional Instructions: Follow up with dentist this week. Continue taking antibiotics as prescribed. Take over the counter tylenol and ibuprofen as directed for pain. Sepsis Event Note (ED) - Evaluation Sepsis Screening Result: No Definite Risk - Focused Exam Vital Signs: Vital Signs Temp Pulse Resp BP Pulse Ox 05/13/20 22:25 36.6 C 63 18 141/98 H 100 - Problem List & Annotations (1) Dental caries, unspecified SNOMED Code(s): 55947747 Code(s): K02.9 - DENTAL CARIES, UNSPECIFIED Status: Acute Annotation/Comment:: Follow up with DDS - Problem List Review Problem List Initiated/Reviewed/Updated: Yes - Assessment/Plan Plan: Follow up with DDS.
== END 2020-05-13 23:24 | disposition home or self-care (01) ==
LOC: FB.ED 22:17
DX: K02.9 Dental caries, unspecified (principal); I10 Essential (primary) hypertension; E66.9 Obesity, unspecified
CPT/HCPCS: 96372; 99282; 99283; J1885

== ENCOUNTER 2021-10-01 07:50 | Emergency (ER) | payer BC ==
[2021-10-01] MEDS ORDERED: Ondansetron 4 MG Tab.DIS PO ONE (07:53)
[2021-10-01 08:09] VITALS: BP 119/79; PULSE 92
[2021-10-01] MEDS ORDERED: Ketorolac 30 MG/ML SDV IM STA (08:13)
== END 2021-10-01 08:40 | disposition home or self-care (01) ==
LOC: FB.ED 07:50
DX: U07.1 COVID-19 (principal); I10 Essential (primary) hypertension; E66.9 Obesity, unspecified; Z68.42 Body mass index [BMI] 45.0-49.9, adult
CPT/HCPCS: 36415; 80048; 85025; 96372; 99284; J1885; Q0162

== ENCOUNTER 2024-08-18 02:32 | Emergency (ER) | payer SELFPAY ==
[2024-08-18] MEDS ORDERED: Sodium Chloride 0.9% 10 ML Syringe FLUSH PRN (02:48)
[2024-08-18 02:51] VITALS: BP 136/83; PULSE 93
[2024-08-18] MEDS: Ondansetron 4 MG/2 ML SDV IVPUSH ONE ×2 (02:55→04:05)
[2024-08-18] MEDS: SUMAtriptan 6 MG/0.5 ML SDV SUBCUT ONE (02:57)
[2024-08-18] MEDS: Sodium Chloride 0.9% 1,000 ML IV ONE (03:13)
[2024-08-18] MEDS: Ketorolac 15 MG/ML SDV IVPUSH ONE (03:20)
== END 2024-08-18 04:33 | disposition home or self-care (01) ==
LOC: FB.ED 02:32
DX: G43.109 Migraine with aura, not intractable, without status migrainosus (principal); I10 Essential (primary) hypertension; E66.9 Obesity, unspecified; Z86.16 Personal history of COVID-19; Z68.42 Body mass index [BMI] 45.0-49.9, adult
CPT/HCPCS: 96361; 96372; 96374; 96375; 96376; 99283; 99284; J1885; J2405; J3030; J7030